=== PATIENT | female | born 1970 | race Caucasian/White ===

== ENCOUNTER 2025-01-29 10:31 | Emergency (ER) | payer OTHER, SELFPAY ==
[2025-01-29 10:33] VITALS: BMI 19.8
[2025-01-29 10:43] VITALS: BP 177/93
--- NOTE | 2025-01-29 10:51 | ED.GENMED ---
History of Present Illness
General
Chief Complaint: Flank Pain
Source: patient and ambulance crew
Exam Limitations: none
Time Seen by Provider: 01/29/25 10:34
Nursing documentation reviewed up to this point in time: agreed with
History of Present Illness
History of Present Illness:
54-year-old female with a past medical history of MS, daily alcohol use who presents to the emergency department for evaluation of left-sided chest/flank pain. Patient reports symptoms started last night she describes a sharp pain in the left lower
chest/upper abdomen that radiated towards the left flank region. This morning pain had improved but not resolved however she developed associated diaphoresis and mild shortness of breath as well as nausea. With his constellation of symptoms she
called EMS to bring her to the hospital to be evaluated. She denies any vomiting. She has chronic diarrhea no acute change. She denies any dysuria, hematuria, change in urinary frequency. She denies any fever, chills, cough or recent URI
symptoms. She says she has had occasional pains in the flank related to her exercise regimen but never similar symptoms to this in the past. She denies any known personal or family history of cardiac disease. She denies any personal history of
DVT/PE. She is not on OCPs. No recent surgeries. She did have a flight to [place] about 2 hours in duration this was 2 or 3 weeks ago.
Past History
Past History
ED Past Medical History: Other (Multiple sclerosis in remission)
ED Past Surgical History: Other (Manter teeth)
Social History
Tobacco: Non-smoker
Alcohol: Daily
Personal:
Living: with family
Family History
Family History: Negative Diabetes, Hypertension, Early CAD, Asthma or Cancer
Review of Systems
Review of Systems
All Other Systems: ROS reviewed and negative except as documented in HPI and ROS
Constitutional: Denies fever or chills
EENT: Denies sore throat or runny nose
Respiratory: Reports trouble breathing; Denies cough
Cardiac: Reports chest pain and diaphoresis; Denies palpitations
ABD/GI: Reports nausea; Denies abdominal pain or vomiting
: Reports flank pain; Denies dysuria, frequency or bleeding
Musculoskeletal: Denies neck pain
Neurological: Denies dizzy or headache
Phy Exam
Physical Exam
Physical Exam:
General: Awake, alert, oriented x3; no acute distress
Head: Normocephalic, atraumatic
Eyes: Conjunctiva normal, sclera anicteric
Throat: Airway intact, handling secretions
Neck: Trachea midline, supple without meningismus
Lungs: Clear to auscultation bilaterally, no wheezing, rales, rhonchi
Heart: Regular rate and rhythm, no murmurs, gallops, or rubs
Abd: Soft, non distended, nontender
Back: No reproducible tenderness in the back or flank and no CVA tenderness
Neuro: No gross deficits
Skin: no rash
Extremities: No edema in extremities, equal pulses in all extremities
Scores
Heart Failure Risk
Heart Failure Risk Score: Not Applicable
Heart Score for Chest Pain Patients
STEMI patient?: No
History: Slightly or Non-Suspicious
ECG: Normal
Age: >45 - <65 years
Risk Factors: No Risk Factors
Troponin: </= Normal Limit
Heart Score for Chest Pain Patients: 1
Heart Score Risk: 2.5% MACE over next 6 weeks
PE Wells Score
Symptoms of DVT: No
No alternative diagnosis better explains the illness: No
Tachycardia with pulse > 100: No
Immobilization (>=3 days) or surgery within previous 4 weeks: No
Prior history of DVT or pulmonary embolism: No
Presence of hemoptysis: No
Presence of malignancy: No
Pulmonary Embolism Risk Score: 0
Probability of PE: Pt is low risk
Withdrawal Assessment of Alcohol
Withdrawal Assessment Completed?: Not applicable
Course
Orders/Labs/Results
Orders:
Orders
01/29/25 10:41
Test Result ONCE
01/29/25 10:51
Complete Blood Count/With Diff Urgent
Comprehensive Metabolic Panel Urgent
D-Dimer Urgent
HCG, Serum Qualitative Screen Urgent
Lipase Urgent
01/29/25 11:12
CT Chest PE Study Urgent
Comment:
Reason For Exam: left chest/flank pain; +dimer
01/29/25 11:13
Electrocardiogram (*1) Urgent
Reason for Study: Chest Pain
EKG- Treatment ONCE
01/29/25 13:26
Urinalysis Reflex To Culture Urgent
Date Specimen was Collected: 01/29/25
Time Specimen was Collected: 13:20
Abnormal Lab Results
01/29/25 01/29/25
10:51 13:26
WBC 4.1 L 10^3/uL
(4.8-10.8)
MCH 31.2 H pg
(27.0-31.0)
MPV 10.6 H fL
(7.4-10.4)
Neutrophils % 41.5 L %
(42.2-75.2)
Monocytes % 11.4 H %
(1.7-9.3)
D-Dimer 0.59 H ug/mlFEU
(0.00-0.50)
Urine Ketones 1+ A
(Negative)
01/29/25 10:51
01/29/25 10:51
Vital Signs
Initial and Last Documented VS:
Initial Vital Signs
BP Pulse Ox
177/93 97
01/29/25 10:43 01/29/25 10:43
Last Documented Vital Signs
Temp Pulse Resp BP Pulse Ox
36.7 C 62 14 133/83 98
01/29/25 10:46 01/29/25 14:00 01/29/25 14:00 01/29/25 14:00 01/29/25 14:00
MDM/Problems Addressed
Differential Diagnosis Includes:
Gastritis, pancreatitis, costochondritis, ACS/angina, nephrolithiasis, PE, dysrhythmia
MDM/Problems Addressed:
54-year-old female with history as noted presents to the ER for evaluation of chest pain associated with diaphoresis, shortness of breath and nausea this morning�symptoms have improved since ER arrival. Hypertensive but otherwise normal vitals.
Physical exam as above. Will check stat EKG. Place an IV send labs including a CBC and a CMP, lipase. Check an hCG. Will check a D-dimer and urinalysis. Check a chest x-ray. Will reassess after the above.
Labs reviewed: CBC unremarkable, CMP no clinically significant abnormalities. hCG negative. Lipase normal. Urinalysis no infection. No blood. Her D-dimer was marginally elevated and so she was sent for a CTA rather than a chest x-ray�this was
negative for PE or any other acute pathology. Reassessment patient says she is feeling much better after some time in the ER. Her vital signs are normal. Given her alcohol use, this could be a gastritis as she had some nausea, sweatiness and the
left-sided upper abdominal/flank pain/chest pain. I think it would be reasonable to trial PPI and have her follow-up with her primary doctor as an outpatient. Recommend alcohol cessation. She feels comfortable with this plan. Spoke about return
precautions all questions answered.
Chronic conditions affecting care:
Alcohol use�at risk for pancreatitis/gastritis
Acute Exacerbation and/or Progression of Chronic Illness:
Acutely hypertensive
Acute Exacerbation and/or Progression of Chronic Illness: HTN
*Radiology
Radiology exam reviewed: preliminary read by ED provider
*Pulse Oximetry
Patient hypoxic: no
*Critical Care Note
Total Time (30-74mins, 75-104mins- exclusive of procedures): Not Applicable
Data Reviewed
Source: patient and ambulance crew
ED Attending Note
-
Portions of this chart may have been created with voice recognition software.� Occasional wrong word or��sound alike� substitutions may have occurred due to the inherent limitations of voice recognition software.
Discharge Plan
Departure
Patient Disposition: Home (Routine Discharge)
Date of Disposition: 01/29/25
Time of Disposition: 14:16
Patient with high blood pressure during this ER visit?: Yes
Discharge Problem:
Left flank pain
Instructions: Flank Pain (DC)
Prescriptions:
New
pantoprazole [Protonix] 40 mg tablet,delayed release (DR/EC)
40 mg PO DAILY Qty: 30 0RF
No Action
paroxetine HCl 10 MG tablet
10 mg PO DAILY
sulfamethoxazole-trimethoprim 800 MG/160 MG tablet
1 tab PO BID Qty: 14 0RF
Referrals:
Loulou Moore, DO [Family Provider] - Follow up in 2-3 days
Activity Restrictions/Additional Instructions:
Thank you for visiting the Emergency Department at [facility].
1. Please schedule a follow up appointment as directed. Call first thing tomorrow morning to make an appointment.
2. If indicated, please take your medications as instructed and indicated on discharge paperwork.
3. If any of your symptoms do not improve, or persist, or become more severe within 6-12 hours, please return to the emergency department for further care.
4. Please return to the emergency department if you develop a headache, neck pain/stiffness, fever greater than 100.4F, chest pain, shortness of breath, persistent nausea, vomiting, slurred speech, difficulty walking, numbness/tingling, weakness,
signs of infection or any other symptoms that are worrisome to you.
Please call [phone] if you have any questions.
Interventions
Interventions:
*Risk Screen - Suicide Last Done: 01/29/25 10:33
*General Assessment Last Done: 01/29/25 10:33
*Neglect/Abuse Screening Last Done: 01/29/25 10:33
ED- Fall Risk Assessment Last Done: 01/29/25 10:33
*ED COVID-19 Vaccine History Last Done: 01/29/25 10:33
JO-Kahmsl-Rotljciehv Assessment Last Done: 01/29/25 10:33
ED-Female Genitourinary Assessment Last Done: 01/29/25 12:01
Discharge Date and Time
Print Language: GERMAN
[2025-01-29 11:00] VITALS: BP 143/87
[2025-01-29 11:02] LABS: % Basophils 1.4 % (0-2); % Eosinophils 2.7 % (0-6); % Immature Granulocytes 0.2 % (0-0.5); % Lymphocytes 42.8 % (20.5-51.1); % Monocytes 11.4 % (1.7-9.3); % Neutrophils 41.5 % (42.2-75.2); Absolute Basophils 0.1 10^3/uL (0-0.2); Absolute Eosinophils 0.1 10^3/uL (0-0.7); Absolute Lymphocytes 1.8 10^3/uL (1.2-3.4); Absolute Monocytes 0.5 10^3/uL (0.1-0.6); Absolute Neutrophils 1.7 10^3/uL (1.4-6.5); Hematocrit 38.7 % (37.0-47.0); Hemoglobin 13.6 g/dL (12.0-16.0); Mean Corp Hgb Conc. 35.1 g/dL (33.0-37.0); Mean Corpuscular Hgb 31.2 pg (27.0-31.0); Mean Corpuscular Volume 88.8 fL (81.0-99.0); Mean Platelet Volume 10.6 fL (7.4-10.4); Nucleated Red Blood Cells % 0 %; Platelet Count 177 10^3/uL (130-400); Red Blood Cell Count 4.36 10^6/uL (4.20-5.40); Red Cell Dist. Width 12.8 % (11.5-14.5); White Blood Cell Count 4.1 10^3/uL (4.8-10.8)
[2025-01-29 11:10] LABS: D-Dimer 0.59 ug/mlFEU (0.00-0.50)
[2025-01-29 11:13] LABS: HCG, Serum Qualitative Screen Negative
[2025-01-29 11:15] LABS: ALT (SGPT) 15 U/L (0-35); AST (SGOT) 25 U/L (14-36); Alkaline Phosphatase 63 U/L (38-126); Blood Urea Nitrogen 11 mg/dl (7-17); Calcium 8.9 mg/dl (8.4-10.2); Carbon Dioxide 30 mmol/L (22-30); Chloride 102 mmol/L (98-107); Estimated Creatinine Clearance 85 ml/min; Glucose 84 mg/dl (70-99); Lipase 68 U/L (23-300); Potassium 4.2 mmol/L (3.5-5.1); Sodium 137 mmol/L (135-145); Total Bilirubin 0.9 mg/dl (0.2-1.3); Total Protein 6.6 g/dl (6.3-8.2); eGFR > 60.00
[2025-01-29 12:00] VITALS: BP 135/87
[2025-01-29 12:45] VITALS: BP 148/80
[2025-01-29 13:00] VITALS: BP 154/76
[2025-01-29 13:34] LABS: Urine Albumin Negative (Neg - Trace); Urine Bilirubin Negative (Negative); Urine Character Clear (Clear); Urine Color Yellow; Urine Glucose Negative (Negative); Urine Ketone 1+ (Negative); Urine Leukocyte Negative (Negative); Urine Nitrite Negative (Negative); Urine Occult Blood Negative (Negative); Urine Urobilinogen Negative (Neg - 1+)
[2025-01-29 14:00] VITALS: BP 133/83
== END 2025-01-29 14:29 | disposition home or self-care (01) ==
LOC: EMR 10:31
PROVIDERS: EMERGENCY PHYSICIAN Emergency Medicine; FAMILY PHYSICIAN Family Medicine
DX: R10.9 Unspecified abdominal pain (principal); G35 Multiple sclerosis; F10.10 Alcohol abuse, uncomplicated; Z82.49 Family history of ischemic heart disease and other diseases of the circulatory system
CPT/HCPCS: 99284; 71275; 80053; 81003; 83690; 84703; 85025; 85379; 93005; Q9967